=== PATIENT | female | born 1975 | race Caucasian/White ===

== ENCOUNTER → 2017-12-29 | Outpatient (CLI) | payer BC | LOC: MC.RAD 11-17 14:20 | DX: Z12.31 Encounter for screening mammogram for malignant neoplasm of breast (principal) ==

== ENCOUNTER 2022-02-06 08:32 | Day surgery (SDC) | payer BC ==
[~2022-02-06] VITALS: Ht 162.6 cm; Wt 56.8 kg
[2022-02-06] MEDS ORDERED: SINGULAIR 110 MG/TAB PO (08:55)
[2022-02-06] MEDS ORDERED: ZYRTEC 10MG10 MG PO (08:55)
[2022-02-06] MEDS ORDERED: PIRMELLA 1/351 TAB PO (08:56)
[2022-02-06 08:57] VITALS: BP 140/75; PULSE 76; TEMP 97.9
[2022-02-06 10:20] VITALS: BP 104/67; PULSE 88; TEMP 98.3
--- NOTE | 2022-02-06 10:20 | NUR ---
Patient arrives to [facility] via cart, accompanied by Endo RN. She is alert and oriented. She ambulates to the chair in her room with standby assist and steady gait. PIV to TKO. Her spouse is at the bedside. Monitoring is applied - VSS and WNL on room air. She denies any nausea or pain. She requests and receives water and applesauce. Call light is within reach.
[2022-02-06 10:35] VITALS: BP 115/65; PULSE 77
[2022-02-06 10:50] VITALS: BP 110/65; PULSE 73
--- NOTE | 2022-02-06 10:55 | NUR ---
Patient has met discharge criteria. Discharge instructions are discussed. She denies any questions and verbalizes understanding. PIV is removed with catheter intact and hemostasis achieved. She changes to her clothing independently. She is escorted to the exit via wheelchair by staff. She is discharged to the care of her , who drives her home in a private vehicle at 1055.
== END 2022-02-06 10:55 | disposition home or self-care (01) ==
LOC: SDCO 08:32
DX: Z12.11 Encounter for screening for malignant neoplasm of colon (principal); D12.3 Benign neoplasm of transverse colon; D12.5 Benign neoplasm of sigmoid colon; K63.5 Polyp of colon
CPT/HCPCS: J2704; J7030